=== PATIENT | female | born 1970 | race Caucasian/White ===

== ENCOUNTER 2022-12-27 17:35 | Emergency (ER) | payer MEDICAID ==
[~2022-12-27] VITALS: Ht 149.9 cm; Wt 111.1 kg
[2022-12-27 17:38] VITALS: BP_SYST 120; PULSE 110; RESP 18; TEMP 98.3; O2SAT 96
--- NOTE | 2022-12-27 17:53 | NUR ---
Patient to ER bed 02 to gown for evaluation. Side rails up.
--- NOTE | 2022-12-27 18:05 | NUR ---
DR JOHN IN ROOM FOR EXAM
--- NOTE | 2022-12-27 18:11 | NUR ---
PT COMES IN TO ER WITH C/O GEN ABD PAIN AND ABD BLOATING SINCE LAST NIGHT WITH MILD NAUSEA AND VOMITTING. REPORTS NORMAL BOWEL MOVEMENTS. ABD LARGE, SOFT, DISTENDED. DENIES CP OR SOB.
[2022-12-27] MEDS ORDERED: NACL 0.9% 1,000 ML IV ONE (18:15)
[2022-12-27] MEDS ORDERED: ONDANSETRON HCL 4 MG/2 ML VIAL IVP ONE (18:15)
[2022-12-27] MEDS ORDERED: MORPHINE 4 MG INJ. 4 MG/ML VIAL IVP ONE (18:15)
[2022-12-27 18:52] LABS: BASOPHILS % (AUTO) 0.3 % (0.0-2.0); EOSINOPHILS # (AUTO) 0.1 K/uL (0.0-0.4); EOSINOPHILS % (AUTO) 1.3 % (0.0-4.0); HEMATOCRIT 47.2 % (36-48); HEMOGLOBIN 15.3 g/dL (12.0-16.0); LYMPHOCYTES # (AUTO) 2.1 K/uL (1.0-5.5); LYMPHOCYTES % (AUTO) 19.3 % (20.5-51.5); MEAN CORPUSCULAR HEMOGLOBIN 27 pg (27-31); MEAN CORPUSCULAR HGB CONC 33 % (32-36); MEAN CORPUSCULAR VOLUME 84 fL (79.0-98.0); MONOCYTES % (AUTO) 8.8 % (1.7-9.3); NEUTROPHILS # (AUTO) 7.7 K/uL (1.8-7.7); NEUTROPHILS % (AUTO) 70.3 % (40.0-70.0); PLATELET COUNT (AUTO) 287 K/uL (130-430); RED BLOOD CELL COUNT(AUTO) 5.62 MIL/uL (4.2-6.2); RED CELL DISTRIBUTION WIDTH 14.4 % (9.0-15.0); WHITE BLOOD COUNT (AUTO) 10.9 K/uL (4.8-10.8)
[2022-12-27 19:09] LABS: CALCIUM 8.5 mg/dL (8.4-11.0); CREATININE 0.82 mg/dL (0.55-1.30); TOTAL BILIRUBIN 0.2 mg/dL (0.0-1.0)
--- NOTE | 2022-12-27 20:13 | NUR ---
PT TO RADIOLOGY
--- NOTE | 2022-12-27 20:41 | NUR ---
PATIENT STABLE VITALS SIGNS IN NORMAL LIMITS NOT COMPLAINING OF PAIN AT THIS TIME
[2022-12-27 20:58] LABS: BILIRUBIN,URINE NEGATIVE (NEGATIVE); BLOOD, URINE NEGATIVE (NEGATIVE); CLARITY/URINE SL CLOUDY (CLEAR); COLOR,URINE YELLOW (YELLOW); GLUCOSE,URINE NEGATIVE (NEGATIVE); KETONES,URINE NEGATIVE (NEGATIVE); LEUKOCYTE ESTERASE ,URINE NEGATIVE (NEGATIVE); NITRITE, URINE NEGATIVE (NEGATIVE); PH,URINE 6.5 (5.0-8.0); PROTEIN URINE NEGATIVE (NEGATIVE); UROBILINOGEN,URINE 0.2 (0.2-1.0)
--- NOTE | 2022-12-27 22:00 | NUR ---
Patient given written and verbal discharge instructions and verbalizes understanding. ER MD discussed with patient the results and treatment provided. Patient in stable condition. ID arm band removed. IV catheter removed intact and dressing applied, no active bleeding. Rx of ALVARO given. Patient educated on pain management and to follow up with PMD. Pain Scale . Opportunity for questions provided and answered. Medication side effect fact sheet provided.
[2022-12-27 22:01] VITALS: BP_SYST 132; PULSE 86; RESP 18; TEMP 97.7; O2SAT 99
== END 2022-12-27 22:00 | disposition home or self-care (01) ==
LOC: SED 17:35
DX: R10.11 Right upper quadrant pain (principal); R10.31 Right lower quadrant pain; R11.0 Nausea; F12.90 Cannabis use, unspecified, uncomplicated; Z79.899 Other long term (current) drug therapy
CPT/HCPCS: 99285; 74176; 96374; 76705; 96361; 96375; 80053; 83690; 85025; 36415; 76376; 81025; 81003; J2405; J2270; J7030